=== PATIENT | male | born 1995 | race Caucasian/White ===

== ENCOUNTER 2016-06-28 01:00 | Emergency (ER) | payer SELFPAY ==
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
[2016-06-28 04:24] VITALS: BP 109/56
== END 2016-06-28 06:53 | disposition home or self-care (01) ==
LOC: ER 01:00
DX: S01.112A Laceration without foreign body of left eyelid and periocular area, initial encounter (principal); W19.XXXA Unspecified fall, initial encounter; F10.120 Alcohol abuse with intoxication, uncomplicated; F17.200 Nicotine dependence, unspecified, uncomplicated
CPT/HCPCS: 99284